=== PATIENT | female | born 1955 | race Two or more races ===

== ENCOUNTER 2021-04-06 06:00 | Day surgery (SDC) | payer OTHER ==
[~2021-04-06 06:00] MED LIST: ENALAPRIL-HCTZ1 EACH PO
[2021-04-06] MEDS ORDERED: PERCOCET 5-3251 EACH PO (16:25)
[2021-04-06] MEDS ORDERED: ASA325 M1 PO (16:25)
[2021-04-06] MEDS ORDERED: DUI500 PO (16:25)
== END 2021-04-06 22:00 | disposition home or self-care (01) ==
LOC: CIR.AMB 06:00
PROVIDERS: ATTEND Orthopaedic Surgery
DX: T84.84XA Pain due to internal orthopedic prosthetic devices, implants and grafts, initial encounter (principal); S72.302D Unspecified fracture of shaft of left femur, subsequent encounter for closed fracture with routine healing; M70.61 Trochanteric bursitis, right hip; Z20.822 Contact with and (suspected) exposure to COVID-19

== ENCOUNTER 2021-10-14 07:45 | Inpatient (IN) | payer OTHER ==
[~2021-10-14] VITALS: Ht 157.5 cm; Wt 73.5 kg
[~2021-10-14 07:45] MED LIST changes: +ASA325 M1 PO; +DUI500 PO; +PERCOCET 5-3251 EACH PO
[2021-10-19] MEDS ORDERED: CLONAZEPAM1 MG (13:33)
[2021-10-19] MEDS ORDERED: SIMVASTATIN20 MG (13:33)
[2021-10-22] MEDS ORDERED: ULTRACET PO (07:47)
[2021-10-22] MEDS ORDERED: DUI500 PO (07:47)
[2021-10-22] MEDS ORDERED: ELIQUIS2.5 MG PO (07:47)
== END 2021-10-22 11:40 | DRG 470 ==
LOC: O/R 10-19 05:55 → SURH 10-19 07:45 → SURG 10-19 17:26
PROVIDERS: ADMIT Orthopaedic Surgery; ATTEND Orthopaedic Surgery
PROC: 3E0F7SF Introduction of Other Gas into Respiratory Tract, Via Natural or Artificial Opening (ICD-10-PCS; 2021-10-19)
PROC: 0SRD0J9 Replacement of Left Knee Joint with Synthetic Substitute, Cemented, Open Approach (ICD-10-PCS; principal; 2021-10-19 15:45)
DX: M17.12 Unilateral primary osteoarthritis, left knee (principal); D62 Acute posthemorrhagic anemia; M81.8 Other osteoporosis without current pathological fracture; I10 Essential (primary) hypertension; E66.8 Other obesity; Z68.42 Body mass index [BMI] 45.0-49.9, adult